=== PATIENT | male | born 1960 | race Caucasian/White ===

== ENCOUNTER → 2017-09-01 09:16 | Outpatient (CLI) | payer MEDICAID ==
[2016-01-17 08:22] VITALS: BMI 31.4
[~2017-09-01 09:16] MED LIST: FENOFIBRATE160 MG PO; FISH OIL 1,0001 CA1 PO
--- NOTE | 2017-09-07 09:53 | EC ---
PATIENT:ERICA KIMBLE DATE OF SERVICE: 09/01/17 SEX: M MEDICAL RECORD: [id number] DATE OF : 64 LOCATION:[facility] AGE OF PATIENT: 57 ADMISSION DATE: 09/01/17 REFERRING PHYSICIAN: INTERPRETING PHYSICIAN: TEE LAU MD ECHOCARDIOGRAM REPORT ECHO CHARGES 4 ECHO COMPLETE CLINICAL DIAGNOSIS: CHEST PAIN ECHOCARDIOGRAPHIC MEASUREMENTS (adult normal given) AC root (d.<3.7cm) 3.6 cm LV Septum d (<1.2 cm> 1.3 cm Valve Excursion 2.1 cm LV Septum (systole) 1.4 cm Left Atria (s.<4.0cm> 4.1 cm LVPW d(<1.2cm) 1.3 cm RV (d.<2.3cm) 3.6 cm LVPW (sytole) 1.6 cm LV diastole(<5.6CM) 5.9 cm MV E-F(>70mm/sec) cm LV systole 4.5 cm LVOT Diameter 1.9 cm MV exc.(>10mm) 1.3 cm Est.ejection fraction (50-75%) % Pericardial Effusion N DOPPLER: LVIT cm/sec A 83.0 cm/sec E 69.0 cm/sec LA cm/sec RVSP 20 mmHg LVOT 109 cm/sec AOP1/2T m/s Asc. Ao 128 cm/sec RVOT 68 cm/sec RA cm/sec PA 115 cm/sec AV Gradient Peak 6.59 mmHg AV Mean 3.29 mmHg AV Area 2.0 cm MV Gradient Peak 3.11 mmHg MV Mean 1.39 mmHg MV Area cm COMMENTS: Photographic Lithographer: Lorrie SHI Manager Reporting: Sara Lau TAPE# PACS DATE OF SERVICE: 09/01/2017 TRANSTHORACIC ECHOCARDIOGRAM FINDINGS: 1. Left ventricle demonstrates mild left ventricular hypertrophy with inflow characteristics consistent with diastolic dysfunction. 2. The aortic valve is normal. 3. The mitral valve is normal shape, size and function with evidence of very trace thickening of the posterior mitral valve leaflet and base. ECHOCARDIOGRAM REPORT [id number] ERICA KIMBLE 4. The tricuspid valve has trace tricuspid regurgitation, normal right ventricular systolic pressures. 5. The pericardium is normal. 6. The right ventricle has mild dilatation. 7. The right atrium has mild dilatation. IMPRESSION: The patient has evidence of early hypertensive heart disease without significant valvular abnormalities. He does demonstrate mild enlargement of the left atrium. TRANSINT:[id number] Voice Confirmation ID: [id number] DOCUMENT ID: [id number] TEE LAU MD at 0953 CC: [id number] DICTATION DATE: 09/04/17 1257 CHAIR SPRING ASSEMBLER: 09/04/17 1451 [facility] CLI 09/01/17 [place] [id number] [place] [address]
== END | disposition home or self-care (01) ==
LOC: D.ECHO 09:16
DX: R07.9 Chest pain, unspecified (principal)

== ENCOUNTER → 2017-09-02 06:21 | Outpatient (CLI) | payer MEDICAID ==
--- NOTE | ~2017-09-02 | HEMODYNAMI ---
PATIENT:ERICA KIMBLE MEDICAL RECORD: [id number] : 64 LOCATION:[facility] ADMISSION DATE: 09/02/17 Generatedon:09/02/201711:11 Patient name: ERICA KIMBLE Patient #: [id number] SSN: : 1960 Date of study: 09/02/2017 Page: Of Hemodynamic Procedure Report Patient Data Patient Demographics Procedure consent was obtained First Name: ERICA Gender: Male Last Name: SHYANNE : 1960 Middle Initial: SOILA Age: 57 year(s) Patient #: [id number] Race: Unknown Additional ID: [id number] Contact details [address]: [address] [place] [address] State: [place] City: [place] Zip code: [address] Past Medical History Allergies: No known allergies Admission Admission Data Admission Date: 09/02/2017 Admission Time: 6:21 Admit Source: Other Lab Results Lab Result Date: 09/02/2017 Lab Result Time: 8:00 Biochemistry Name Units Result Min Max BUN mg/dl 16 --(---*)-- 7 18 Creatinine mg/dl 1.2 --(---*)-- 0.6 1.3 CBC Name Units Result Min Max Hematocrit % 43.3 --(*---)-- 42 54 Hemoglobin g/dl 15 --(-*--)-- 13.5 17.5 Procedure Procedure Types Cath Procedure Diagnostic Procedure LHC LHC w/Coronaries Miscellaneous Procedures Moderate Sedation up to 30 minutes Procedure Description Procedure Date Procedure Date: 09/02/2017 Procedure Start Time: 10:44 Procedure End Time: 11:08 Procedure Staff Name Function Mayco Perry MD Performing Physician Sherri Guadalupe RN Nurse Brad Meraz RT Monitor Miguelina Cardenas RT Scrub Procedure Data Cath Procedure Fluoroscopy Diagnostic fluoroscopy Total fluoroscopy Time: 1.8 time: 1.8 min min Diagnostic fluoroscopy Total fluoroscopy dose: dose: 176.96 mGy 176.96 mGy Contrast Material Contrast Material Type Amount (ml) Isovue 300 41 Entry Location Entry Primary Successful Side Size Upsize Upsize Entry Closure Succes sful Closure Location (Fr) 1 (Fr) 2 (Fr) Remarks Device Remarks Femoral Right 5 Fr Exoseal artery Estimated blood loss: 10 ml Diagnostic catheters Device Type Used For End Catheter Placement Cordis 5Fr JL 4.0 Procedure Catheter (MP) Cordis 5Fr 3DRC Catheter Procedure (MP) Cordis 5Fr Pigtail Procedure Catheter (MP) Procedure Complications No complications Procedure Medications Medication Administration Route Dosage Oxygen NC 2 l/min Lidocaine 2% added to field 20 Heparin Flush Bag added to field 2 bags (1000units/500ml NS) 0.9% NaCl I.V. 100 ml/hr Versed I.V. 2 mg Fentanyl I.V. 25 mcg Radial Cocktail added to field 1 syringe (Verapomil 2mg/Nitro 400mcg/Heparin 1500units) Hemodynamics Rest Heart Rate: 56 (bpm) Pressure Samples Time Site Value (mmHg) Purpose Heart Use Rate(bpm) 11:04 LV 108/-7,13 EDP 58 11:04 AO 113/53(78) Pullback 58 11:04 LV 98/17,30 Pullback 58 Gradients Valve Time Site 1 Site 2 Mean SEP/DFP Peak To Heart Use (mmHg) (sec/min) Peak Rate (mmHg) (bpm) Aortic 11:04 LV AO 0 9 0 58 98/17,30 113/53(78) Calculations Valve P-P Mean Valve Index Valve Source Name Gradient Area Flow (cm2) Aortic 0 0 0 0 Snapshots Pre Cath Intra NCS Post Cath Vital Signs Time Heart Resp SPO2 NIBP (mmHg) Rhythm Pain Sedation Rate (ipm) (%) Status Level (bpm) 10:41:55 57 13 99 110/71(88) NSR 0 (11) 10(A) , No pain 10:46:15 54 16 97 111/65(82) NSR 0 (11) 10(A) , No pain 10:50:42 54 15 96 107/60(89) NSR 0 (11) 10(A) , No pain 10:55:00 52 16 97 110/65(101) NSR 0 (11) 10(A) , No pain 10:59:18 59 13 98 102/68(89) NSR 0 (11) 10(A) , No pain 11:03:34 56 16 97 112/65(85) NSR 0 (11) 10(A) , No pain 11:07:56 57 16 99 114/61(86) NSR 0 (11) 10(A) , No pain Medications Time Medication Route Dose Verified Delivered Reason Notes Effectiveness by by 10:40:57 Oxygen NC 2 l/min Mayco Buffie used for Vicky Guadalupe RN procedure 10:41:05 Lidocaine 2% added 20ml Mayco Mayco for local to vial Vicky Perry MD anesthetic field LAM 10:41:13 Heparin Flush added 2 bags Mayco Buffie used for Bag to Vicky Guadalupe nuclear worker technician (1000units/500ml field LAM NS) 10:41:22 0.9% NaCl I.V. 100 Mayco Buffie Per ml/hr Vicky Guadalupe RN physician 10:44:47 Versed I.V. 2 mg Mayco Buffie for Vicky Guadalupe RN sedation 10:44:53 Fentanyl I.V. 25 mcg Mayco Buffie for Vicky Guadalupe RN sedation 10:50:49 Radial Cocktail added 1 Mayco Mayco not (Verapomil to syringe Vicky Perry MD used. 2mg/Nitro field LAM femoral 400mcg/Heparin access 1500units) obtained Procedure Log Time Note 10:10:10 Sherri Guadalupe RN sent for patient. Start room use. 10:10:36 Informed consent obtained and on chart 10:10:39 Admit Source: Other 10:16:06 Diagnostic Cath status Elective 10:16:22 Time tracking: Regular hours 10:16:25 Plan of Care:Hemodynamics will remain stable., Cardiac rhythm will remain stable., Comfort level will be maintained., Respiratory function will remain adequate., Patient/ family verbilizes understanding of procedure., Procedure tolerated without complication., Recovers from procedure without complications.. 10:16:47 H&P Date Dictated: 09/01/2017 Within 30 days and on chart., H&P Addendum completed by physician on day of procedure. (MUST COMPLETE FOR ALL OUTPATIENTS). 10:27:35 Patient received from Pre/Post Procedure Room to [facility] 3 Alert and oriented. Tansferred to table in Supine position. 10:27:36 Warm blankets applied, and zen hugger turned on for patient comfort. 10:27:37 Correct patient and procedure confirmed by team. 10:27:40 ECG and BP/O2 sat monitors applied to patient. 10::41 Pre-procedure instructions explained to patient. 10::41 Pre-op teaching completed and patient verbalized understanding. 10:27:43 Family in waiting room. 10:27:45 Patient NPO since Midnight. 10:27:52 Patient allergic to No known allergies 10:28:03 Is the patient allergic to Iodine/contrast media? No. 10:40:41 Vital chart was started 10:40:57 Oxygen 2 l/min NC was administered by Sherri Guadalupe RN; used for procedure; 10:41:05 Lidocaine 2% 20ml vial added to field was administered by Mayco Perry MD; for local anesthetic; 10:41:05 Is patient on blood thinner?Yes 10:41:08 ACC The patient was administered the following blood thiners within the last 24 hours: ACCPlavix 10:41:10 Patient diabetic? No. 10:41:13 Heparin Flush Bag (1000units/500ml NS) 2 bags added to field was administered by Sherri Guadalupe RN; used for procedure; 10:41:13 Previous problem with sedation/anesthesia? No ? 10:41:15 Snore? Yes 10:41:16 Sleep apnea? No 10:41:16 Deviated septum? No 10:41:17 Opens mouth fully? Yes 10:41:17 Sticks out tongue? Yes 10:41:19 Airway obstruction? No ? 10:41:21 Dentures? No ? 10:41:22 0.9% NaCl 100 ml/hr I.V. was administered by Sherri Guadalupe RN; Per physician; 10:41:25 Modified Mack's test Radial < 7 seconds 10:41:26 Patient pain scale 0/10 ?. 10:41:40 IV patent on arrival in left hand with 0.9% NaCl at [facility]. 10:42:13 Lab Result : BUN 16 mg/dl 10:42:13 Lab Result : Creatinine 1.2 mg/dl 10:42:13 Lab Result : Hemoglobin 15 g/dl 10:42:13 Lab Result : Hematocrit 43.3 % 10:42:15 Lab results completed and on chart. 10:42:18 Right Radial & Right Groin area was prepped with chlora-prep and draped in sterile fashion 10:42:19 Alarms reviewed by R. N. 10:42:19 Sharps counted by scrub and verified by R.N. 10:42:21 Use device set Radial Dx 10:42:23 Acist Manifold opened to sterile field. 10:42:24 Tegaderm 4 x 4 opened to sterile field. 10:42:25 Acist Hand Control opened to sterile field. 10:42:26 Acist Syringe opened to sterile field. 10:42:26 Medline Cath Pack opened to sterile field. 10:42:27 Bag Decanter opened to sterile field. 10:42:27 Terumo 6Fr Slender Glidesheath opened to sterile field. 10:42:28 St Henri 260cm J .035 wire opened to sterile field. 10:42:37 Physician arrived 10:42:37 --------ALL STOP TIME OUT------ 10:42:37 Final Timeout: patient, procedure, and site verified with staff and physician. All members of the team are in agreement. 10:42:39 Right Radial & Right Groin site verified by team. 10:42:42 Physical assessment completed. ASA score P 2 - A patient with mild systemic disease as per Mayco Perry MD. 10:42:47 Sedation plan: IV Moderate Sedation Versed, Fentanyl 10:44:11 Procedure started. 10:44:11 Full Disclosure recording started 10:44:15 Local anesthetic to right radial artery with Lidocaine 2% by Mayco Perry MD.INITIAL ACCESS ONLY 10:44:47 Versed 2 mg I.V. was administered by Sherri Guadalupe RN; for sedation; 10:44:53 Fentanyl 25 mcg I.V. was administered by Sherri Guadalupe RN; for sedation; 10:49:05 Zero performed for pressure channel P1 10:49:20 Baseline sample Acquired. 10:49:22 Rhythm: sinus rhythm 10:50:41 Cook 21G 4cm Radial Needle opened to sterile field. 10:50:49 Radial Cocktail (Verapomil 2mg/Nitro 400mcg/Heparin 1500units) 1 syringe added to field was administered by Mayco Perry MD; ; not used. femoral access obtained 10:52:57 Local anesthetic to right femoral artery with Lidocaine 2% by Mayco Perry MD.ADDITIONAL ACCESS 10:53:07 Cook 4Fr Micropuncture Set ([id number]) opened to sterile field. 10:53:08 Terumo 5Fr [place] Sheath opened to sterile field. 10:53:28 unable to gain radial access. Moving to femoral approach. 10:53:35 Use device set Multipack Set 10:53:36 Diagnostic Infinity 5Fr Multipack catheter opened to sterile field. 10:53:41 Access obtained with 4Fr micropunture. 10:53:52 A 5 Fr sheath was inserted into the Right Femoral artery 10:57:18 A Cordis 5Fr JL 4.0 Catheter (MP) was advanced over the wire and used for Procedure. 10:59:09 LCA angiography performed. 11:01:37 Catheter exchanged over wire. 11:01:42 A Cordis 5Fr 3DRC Catheter (MP) was advanced over the wire and used for Procedure. 11:02:35 RCA angiography performed. 11:02:56 Catheter exchanged over wire. 11:03:02 A Cordis 5Fr Pigtail Catheter (MP) was advanced over the wire and used for Procedure. 11:04:32 LV gram done using JAVED 11:04:35 Injector settings: Ml/sec: 10, Volume: 20, 11:04:37 LV hemodynamics recorded. 11:05:06 EF : 55 % 11:05:08 Catheter removed. 11:05:14 Cordis 5Fr Exoseal opened to sterile field. 11:05:20 Sheath removed intact; hemostasis achieved with Exoseal to the Right Femoral artery. 11:05:22 Procedure ended.(Physican Out) 11:05:31 Fluoroscopy time 01.80 minutes. 11:05:37 Fluoroscopy dose: 176.96 mGy 11:05:37 Flurop Dose total: 176.96 11:05:41 Contrast amount:Isovue 300 41ml. 11:05:42 Sharps counted by scrub and verified by R.N. 11:05:44 Insertion/operative site no bleeding no hematoma. 11:05:46 Post-op/insertion site Right Femoral artery dressed using a 4 x 4 and Tegaderm. 11:05:49 Post right femoral artery:stable, soft, clean and dry 11:07:56 Post Procedure Pulses reassessed and unchanged 11:08:00 Post-procedure physical assessment completed. ASA score P 2 - A patient with mild systemic disease as per Mayco Perry MD. 11:08:02 Post procedure rhythm: unchanged. 11:08:04 Estimated blood loss: 10 ml 11:08:06 Post procedure instruction explained to patient.Patient verbalizes understanding. 11:08:07 Patient needs reinforcement of post procedure teaching. 11:08:17 Procedure type changed to Cath procedure, Diagnostic procedure, LHC, LHC w/Coronaries, Miscellaneous Procedures, Moderate Sedation up to 30 minutes 11:08:34 Procedure and supply charges have been captured, reviewed, submitted and are correct. 11:08:36 Procedure Complication : No complications 11:08:38 Vital chart was stopped 11:08:38 See physician's report for complete and final results. 11:08:39 Report given to Pre/Post Procedure Room. 11:08:42 Patient transfered to Pre/Post Procedure Room with Stretcher. 11:08:43 Procedure ended. 11:08:43 Full Disclosure recording stopped 11:10:13 End room use (Document Last) Device Usage Item Name Manufacture Quantity Catalog Hospital Part Current Minima l Lot# / Number Charge Number Stock Stock Serial# Code Acist Acist 1 02878 287289 421264 470847 5 Manifold [employer] Inc Tegaderm 4 x 3M 1 1626W 941249 323133 008351 5 4 Acist Hand Acist 1 88258 504281 434310 116017 5 Control Medical [employer] Inc Acist Syringe Acist 1 18119 314017 398837 542305 20 Medical Systems Inc Medline Cath Cardinal 1 [id number] 849469 65379 997753 5 Pack Health Bag Decanter Microtek 1 2001S 431587 14159 170427 5 Medical Inc. Terumo 6Fr Terumo 1 [id number] 166036 080720 136199 [address] Henri [address] St Henri 1 886419 650346 811714 592730 30 J .035 wire Cook 21G 4cm [employer] Medical 1 [id number] 372720 247618 908973 5 Radial Needle Cook 4Fr Cook Medical 1 [id number] 790229 599043 570034 5 Micropuncture Set ([id number]) Terumo 5Fr Terumo 1 [id number] 428851 962372 853166 40 [place] Sheath Diagnostic Cardinal 1 [id number] 017326 36326 289849 30 Infinity 5Fr Health Multipack catheter Cordis 5Fr JL Cardinal 1 [id number] 5 4.0 Catheter Health (MP) Cordis 5Fr Cardinal 1 023468 5 3DRC Catheter Health (MP) Cordis 5Fr Cardinal 1 904824 5 Pigtail Health Catheter (MP) Cordis 5Fr Cardinal 1 EX500 672253 403584 249116 10 [facility] Signature Audit [place] Stage Time Signature Unsigned Intra-Procedure 09/02/2017 Brad Meraz 11:11:55 AM RT(R) Signatures Monitor : Brad Meraz RT Signature : Date : Time : [address] [address]
[2017-09-02 07:50] VITALS: BP 124/75; BMI 33.9
[2017-09-02 08:04] LABS: BASOPHILS 0.4 % (0-2); EOSINOPHILS 4.4 % (0-7); HEMATOCRIT 43.3 % (42.0-54.0); IMMATURE GRANULOCYTES 0.2 % (0-5); LYMPHOCYTES 29.4 % (15-50); MCH 31.1 pg (26.0-34.0); MCHC 34.6 g/dL (31.0-37.0); MCV 89.6 fL (80.0-100.0); MEAN PLATELET VOLUME 9.9 fL (7.4-10.4); MONOCYTES 11.1 % (2-11); NEUTROPHILS 54.5 % (40-80); PLATELET COUNT 132 10x3/uL (130-400); RBC 4.83 10x6/uL (4.20-6.10); RDW 12.4 % (11.5-14.5); WBC 4.6 10x3/uL (4.8-10.8)
[2017-09-02 08:21] LABS: ANION GAP 10.7 mmol/L (8-16); CALCIUM 8.5 mg/dL (8.5-10.1); CARBON DIOXIDE 26.2 mmol/L (21.0-32.0); CREATININE - SERUM 1.2 mg/dL (0.6-1.3); POTASSIUM - SERUM 3.9 mmol/L (3.5-5.1)
--- NOTE | 2017-09-02 11:30 | NUR ---
2L NC, NO RESP DISTRESS NOTED. RIGHT GROIN 5F EXOSEAL CDI, NO BLEEDING OR HEMATOMA NOTED. NO C/O PAIN OR NAUSEA. VSS. CALL LIGHT WITHIN REACH.
--- NOTE | 2017-09-02 12:00 | NUR ---
RESTING QUIETLY WITH EYES CLOSED. 2L NC, NO RESP DISTRESS NOTED. RIGHT GROIN 6F EXOSEAL CDI, NO BLEEDING OR HEMATOMA NOTED. NO C/O AT THIS TIME. CALL LIGHT WITHIN REACH.
--- NOTE | 2017-09-02 12:30 | NUR ---
NO DISTRESS NOTED CHEST PAIN DENIED WITH 5 FR EXOSEAL R/GROIN CDI
--- NOTE | 2017-09-02 12:43 | NUR ---
HOB ELEVATED 30 DEGREES, RIGHT GROIN 5F EXOSEAL CDI, NO BLEEDING NOTED. SANDWICH TRAY AND DRINK GIVEN. NO C/O NAUSEA.
--- NOTE | 2017-09-02 13:02 | NUR ---
LEFT WRIST PIV D/C'D WITH CATHETER INTACT, BAND AID TO SITE. UP TO BEDSIDE TO GET DRESSED.
--- NOTE | 2017-09-02 13:09 | NUR ---
DISCHARGE INSTRUCTIONS GIVEN, VERBALIZED UNDERSTANDING. TO RESTROOM TO VOID.
--- NOTE | 2017-09-02 13:15 | NUR ---
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 LEFT FACILITY WITH FRIEND AND ALL PERSONAL BELONGINGS.
== END | disposition home or self-care (01) ==
LOC: D.CATH 06:21
PROVIDERS: Internal Medicine Cardiovascular Disease
DX: I25.10 Atherosclerotic heart disease of native coronary artery without angina pectoris (principal); R94.39 Abnormal result of other cardiovascular function study; I11.0 Hypertensive heart disease with heart failure; I50.9 Heart failure, unspecified; I51.7 Cardiomegaly; Z01.812 Encounter for preprocedural laboratory examination

== ENCOUNTER → 2018-03-09 15:32 | Outpatient (CLI) | payer MEDICAID ==
[2017-09-02 07:50] VITALS: BMI 33.9
== END | disposition home or self-care (01) ==
LOC: D.RAD 15:32
DX: M54.5 Low back pain (principal)

== ENCOUNTER → 2018-03-22 14:16 | Outpatient (CLI) | payer MEDICAID ==
[2017-09-02 07:50] VITALS: BMI 33.9
== END | disposition home or self-care (01) ==
LOC: D.MRI 03-19 14:30
DX: M54.5 Low back pain (principal)

== ENCOUNTER → 2018-10-12 09:11 | Outpatient (CLI) | payer MEDICAID ==
[2017-09-02 07:50] VITALS: BMI 33.9
== END | disposition home or self-care (01) ==
LOC: D.US 09:11
DX: R42 Dizziness and giddiness (principal)

== ENCOUNTER → 2021-01-23 09:34 | Outpatient (CLI) | payer MEDICAID ==
[2017-09-02 07:50] VITALS: BMI 33.9
--- NOTE | ~2021-01-23 | EC ---
PATIENT:ERICA KIMBLE DATE OF SERVICE: 01/23/21 SEX: M MEDICAL RECORD: [id number] DATE OF : 64 [facility] AGE OF PATIENT: 60 ADMISSION DATE: 01/23/21 REFERRING PHYSICIAN: INTERPRETING PHYSICIAN: NEREYDA JAIN MD ECHOCARDIOGRAM REPORT ECHO CHARGES 4 ECHO COMPLETE Date: 01/23/21 CLINICAL DIAGNOSIS: CHEST PAIN/HEART MURMUR ECHOCARDIOGRAPHIC MEASUREMENTS (adult normal given) AC root (d.<3.7cm) 3.4 cm LV Septum d (<1.2 cm> 1.3 cm Valve Excursion 1.7 cm LV Septum (systole) 1.7 cm Left Atria (s.<4.0cm> 4.0 cm LVPW d(<1.2cm) 1.5 cm RV (d.<2.3cm) 3.6 cm LVPW (sytole) 2.1 cm LV diastole(<5.6CM) 5.3 cm MV E-F(>70mm/sec) cm LV systole 3.4 cm LVOT Diameter 2.0 cm MV exc.(>10mm) 1.2 cm Est.ejection fraction (50-75%) % DOPPLER: LVIT cm/sec A 63.0 cm/sec E 80.0 cm/sec LA cm/sec RVSP 24 mmHg LVOT 87 cm/sec AOP1/2T m/s Asc. Ao 118 cm/sec RVOT 62 cm/sec RA cm/sec PA 100 cm/sec AV Gradient Peak 5.53 mmHg AV Mean 2.97 mmHg AV Area 2.3 cm MV Gradient Peak 2.00 mmHg MV Mean 0.81 mmHg MV Area cm COMMENTS: Tailing Hand: 2 CLARENCE SHI Welt Rander: 3 Dr. Jurado TAPE# PACS Pericardial Effusion N DATE OF SERVICE: Adequate 2D, color flow imaging, spectral Doppler, and M-Mode. LVH is present. LV internal dimensions are normal. Wall motion normal. EF greater than or equal to 55%. Aortic valve is tricuspid. No evidence of stenosis by Doppler interrogation. Left atrium is normal at 4.0 cm. Mitral valve shows no prolapse. Trace MR. Right-sided chambers are grossly normal. Trace TR. ECHOCARDIOGRAM REPORT [id number] ERICA KIMBLE TRANSINT:[id number] Voice Confirmation ID: [id number] DOCUMENT ID: [id number] NEREYDA JAIN MD CC: [id number] DICTATION DATE: 01/24/21 1638 TICKET COUNTER: 01/24/212010 DEP CLI 01/23/21 [place] [id number]
== END | disposition home or self-care (01) ==
LOC: D.HCCARDIO 09:34 → D.HCCECHO 10:30
PROVIDERS: ATTEND Internal Medicine Cardiovascular Disease
DX: I20.9 Angina pectoris, unspecified (principal)

== ENCOUNTER 2021-02-07 11:36 | Day surgery (SDC) | payer BC ==
[~2021-02-07] VITALS: Ht 170.2 cm; Wt 95.5 kg
--- NOTE | ~2021-02-07 | HEMODYNAMI ---
PATIENT:ERICA KIMBLE MEDICAL RECORD: [id number] : 64 LOCATION:[facility]ARA ADMISSION DATE: 02/07/21 Generatedon:113:38 Patient name: ERICA KIMBLE Patient #: [id number] SSN: [id number] : 1960 Date of study: 02/07/2021 Page: Of Hemodynamic Procedure Report Patient Data Patient Demographics Procedure consent was obtained First Name: ERICA Gender: Male Last Name: SHYANNE : 1960 Middle Initial: SOILA Age: 60 year(s) Patient #: [id number] Race: SSN: [id number] Additional ID: [id number] Contact details Address: [address] [place] [address] State: [place] City: [place] Zip code: [address] Past Medical History Performed procedures and imaging results Date Procedure Procedure Results Comments 01/23/2021 Stress testing Positive->Intermediate with SPECT MPI risk Allergies: No known allergies Admission Admission Data Admission Date: 02/07/2021 Admission Time: 11:36 Admit Source: Other Lab Results Lab Result Date: 02/07/2021 Lab Result Time: 0:00 Biochemistry Name Units Result Min Max BUN mg/dl 15 --(--*-)-- 7 18 Creatinine mg/dl 0.9 --(-*--)-- 0.6 1.3 eGFR ml/min 90 --(*---)-- 90 120 NONAFRICAN CBC Name Units Result Min Max Hematocrit % 44.3 --(*---)-- 42 54 Hemoglobin g/dl 15.2 --(-*--)-- 13.5 17.5 Procedure Procedure Types Cath Procedure Diagnostic Procedure LHC LH w/Coronaries Sedation Charges Moderate Sedation 10-24 minutes Procedure Description Procedure Date Procedure Date: 02/07/2021 Procedure Start Time: 13:30 Procedure End Time: 13:37 Procedure Staff Name Function Mat Giraldo MD Performing Physician Ethel Pineda RT Monitor Miguelina Cardenas RT Scrub Sherri Guadalupe RN Nurse Indication Chest pain Procedure Data Cath Procedure Fluoroscopy Diagnostic fluoroscopy Total fluoroscopy Time: 1.1 time: 1.1 min min Diagnostic fluoroscopy Total fluoroscopy dose: 403 dose: 403 mGy mGy Contrast Material Contrast Material Type Amount (ml) Isovue 370 63 Entry Location Entry Primary Successful Side Size Upsize Upsize Entry Closure Succes sful Closure Location (Fr) 1 (Fr) 2 (Fr) Remarks Device Remarks Femoral Right 5 Fr Exoseal artery Estimated blood loss: 5 ml Diagnostic catheters Device Type Used For End Catheter Placement MULTIPACK JL 4.0 5Fr Procedure catheter MULTIPACK 3DRC 5Fr Procedure catheter MULTIPACK Pigtail 5 Fr Procedure catheter Procedure Complications No complications Procedure Medications Medication Administration Route Dosage Oxygen etCO2 Nasal cannula 2 l/min Lidocaine 2% added to field 20 Heparin Flush Bag added to field 2 bags (1000units/500ml NS) 0.9% NaCl I.V. 100 ml/hr Versed I.V. 1 mg Fentanyl I.V. 50 mcg Versed I.V. 1 mg Fentanyl I.V. 50 mcg Versed I.V. 1 mg Fentanyl I.V. 25 mcg Versed I.V. 1 mg Hemodynamics Rest HGB: 15.2 (g/dl) Heart Rate: 60 (bpm) Pressure Samples Time Site Value (mmHg) Purpose Heart Use Rate(bpm) 13:34 LV 99/9,6 Snapshot 64 Gradients Valve Time Site Site Mean SEP/DFP Peak To Heart Use 1 2 (mmHg) (sec/min) Peak Rate (mmHg) (bpm) Aortic 13:35 LV AO 63 Snapshots Pre Cath Intra NCS Post Cath Vital Signs Time Heart Resp SPO2 etCO2 NIBP (mmHg) Rhythm Pain Sedation Rate (ipm) (%) (mmHg) Status Level (bpm) 13:19:42 61 15 96 31.5 151/94(112) NSR 0 (11) 10(A) , No pain 13:24:00 57 14 95 36.7 141/97(113) NSR 0 (11) 10(A) , No pain 13:28:59 58 12 98 42.7 Measuring NSR 0 (11) 10(A) , No pain 13:29:07 57 12 97 43.5 143/81(104) NSR 0 (11) 9(A) , No pain 13:33:31 61 13 95 43.5 136/80(108) NSR 0 (11) 9(A) , No pain 13:37:33 64 12 96 44.2 140/89(108) NSR 0 (11) 10(A) , No pain Medications Time Medication Route Dose Verified Delivered Reason Notes Eff ectiveness by by 13:18:33 Oxygen etCO2 2 Mat Buffie used for Nasal l/min [facility] block greaser cannula 13:18:41 Lidocaine 2% added 20ml Mat Mat for local to vial [facility] anesthetic field MD LAM 13:24:06 Versed I.V. 1 mg Mat Buffie for Enzo Guadalupe RN sedation 13:24:17 Fentanyl I.V. 50 Mat Buffie for mcg Enzo Guadalupe RN sedation 13:25:41 Heparin Flush added 2 Mat Mat used for Bag to bags [facility] procedure (1000units/500ml field MD LAM NS) 13:25:49 0.9% NaCl I.V. 100 Mat Buffie Per ml/hr [place] Guadalupe RN physician 13:27:11 Versed I.V. 1 mg Mat Buffie for Enzo Guadalupe RN sedation 13:27:15 Fentanyl I.V. 50 Mat Buffie for mcg Enzo Guadalupe RN sedation 13:31:36 Versed I.V. 1 mg Mat Buffie for Enoz Guadalupe RN sedation 13:31:40 Fentanyl I.V. 25 Mat Buffie for mcg Enzo Guadalupe RN sedation 13:34:25 Versed I.V. 1 mg Mat Buffie for Enzo Guadalupe RN sedation Procedure Log Time Note 12:20:47 Diagnostic Cath Status : Elective 12:21:10 Indication : Chest pain 12:22:43 Admit Source: Other 12:22:46 ACC Patient presents with Stable Angina CCS Anginal Class 2--Slight limitation of ordinary activity. 12:22:49 Procedure Status Elective Heart Cath (OP). 12:22:51 Time tracking: Regular hours (M-F 7:00 - 5:00) 12:22:56 Plan of Care:Hemodynamics will remain stable., Cardiac rhythm will remain stable., Comfort level will be maintained., Respiratory function will remain adequate., Patient/ family verbilizes understanding of procedure., Procedure tolerated without complication., Recovers from procedure without complications.. 12:23:05 H&P Date Dictated: 01/14/2021 Within 30 days and on chart.. 12:23:07 Pre-procedure instructions explained to patient. 12:23:07 Pre-op teaching completed and patient verbalized understanding. 12:23:09 Family in waiting room. 12:23:11 Patient NPO since Midnight. 12:23:17 Patient allergic to No known allergies 12:24:23 Stress Test: yes; abnormal inferior and apical 12:24:39 Alarms reviewed by R. N. 12:24:40 Sharps counted by scrub and verified by R.N. 12:36:59 Lab results completed and on chart. 12:37:25 Lab Result : Hemoglobin 15.2 g/dl 12:37:25 Lab Result : Hematocrit 44.3 % 12:53:17 Lab Result : BUN 15 mg/dl 12:53:17 Lab Result : eGFR NONAFRICAN 90 ml/min 12:53:17 Lab Result : Creatinine 0.9 mg/dl 12:54:49 Risk of Mortality: 0.1 12:54:52 Risk of blood transfusion: 0.2 12:54:54 Risk of ERIBERTO: 0.1 13:03:13 Sherri Guadalupe RN sent for patient. Start room use. 13:08:54 Patient received from Pre/Post Procedure Room to CCL 1 Alert and oriented. Tansferred to table in Supine position. 13:09:30 Signed procedure consent form obtained from patient. 13:09:32 Warm blankets applied, and zen hugger turned on for patient comfort. 13:09:33 Correct patient and procedure confirmed by team. 13:09:33 ECG and BP/O2 sat monitors applied to patient. 13:18:23 Vital chart was started 13:18:33 Oxygen 2 l/min etCO2 Nasal cannula was administered by Sherri Guadalupe RN; used for procedure; Verbal order read back and verified. 13:18:41 Lidocaine 2% 20ml vial added to field was administered by Mat Giraldo MD; for local anesthetic; Verbal order read back and verified. 13:18:55 Full Disclosure recording started 13:19:02 Rhythm: sinus rhythm 13:19:07 Is the patient allergic to Iodine/contrast media? No. 13:19:09 Was the patient premedicated? No 13:19:10 Is patient on blood thinner?No 13:19:12 Patient diabetic? No. 13:19:13 If diabetic: On Metformin? N/A 13:19:19 ----Pre-sedation anethsthesia assessment.---- 13:19:22 Previous problem with sedation/anesthesia? No ? 13:19:24 Snore? Yes 13:19:26 Sleep apnea? No 13:19:27 Deviated septum? No 13:19:28 Opens mouth fully? Yes 13:19:29 Sticks out tongue? Yes 13:19:31 Airway obstruction? No ? 13:19:32 Dentures? No ? 13:19:36 Pre procedure: right dorsailis pedis pulse 1+ Palpable, but thready & weak; easily obliterated 13:19:38 Modified Mack's test Ulnar > 7 seconds. 13:19:41 Patient pain scale 0/10 ?. 13:19:46 IV patent on arrival in left antecubital with 0.9% NaCl at [facility]. 13:19:54 Right groin area was prepped with chlora-prep and draped in sterile fashion 13:19:58 Use device set Femoral Dx 13:19:59 ACIST Syringe (36025) opened to sterile field. 13:20:00 Bag Decanter (2002S) opened to sterile field. 13:20:01 Medline Cath Pack ([id number]) opened to sterile field. 13:20:01 ACIST Hand Control (21662) opened to sterile field. 13:20:02 ACIST Manifold (49861) opened to sterile field. 13:20:02 DIAGNOSTIC Multipack 5Fr catheter set (KG2513) opened to sterile field. 13:20:04 SHEATH 5FR [place] (VBF549) opened to sterile field. 13:20:06 EMERALD Guide Wire (038-671) opened to sterile field. 13:20:07 Tegaderm 4 x 4 (1626W) opened to sterile field. 13:20:17 Baseline sample Acquired. 13:23:15 --------ALL STOP TIME OUT------ 13:23:16 Final Timeout: patient, procedure, and site verified with staff and physician. All members of the team are in agreement. 13:23:18 Right groin site verified by team. 13:23:27 Fire Safety Assessment: A--An alcohol-based skin anteseptic being used preoperatively., C--Open oxygen or nitrous oxide is being used., D--An ESU, laser, or fiber-optic light is being used. 13:23:31 Physical assessment completed. ASA score P 2 - A patient with mild systemic disease as per Mat Giraldo MD. 13:23:34 1) 90+ Normal kidney functon but urine findings or structural abnormalities or genetic trait point to kidney disease. 13:23:38 Maximum allowable contrast dose (3.7 X eGFR X 0.75)250 ml. 13:23:42 Sedation plan: IV Moderate Sedation Medication:Versed, Fentanyl 13:24:06 Versed 1 mg I.V. was administered by Sherri Guadalupe RN; for sedation; Verbal order read back and verified. 13:24:17 Fentanyl 50 mcg I.V. was administered by Sherri Guadalupe RN; for sedation; Verbal order read back and verified. 13:25:41 Heparin Flush Bag (1000units/500ml NS) 2 bags added to field was administered by Mat Giraldo MD; used for procedure; Verbal order read back and verified. 13:25:49 0.9% NaCl 100 ml/hr I.V. was administered by Sherri Guadalupe RN; Per physician; Verbal order read back and verified. 13:25:59 Zero performed for pressure channel P1 13:27:11 Versed 1 mg I.V. was administered by Sherri Guadalupe RN; for sedation; Verbal order read back and verified. 13:27:15 Fentanyl 50 mcg I.V. was administered by Sherri Guadalupe RN; for sedation; Verbal order read back and verified. 13:27:28 Zero performed for pressure channel P1 13:30:02 Procedure started. 13:30:06 Local anesthetic to right femoral artery with Lidocaine 2% by Mat Giraldo MD.INITIAL ACCESS ONLY 13:30:41 A 5 Fr sheath was inserted into the Right Femoral artery 13:31:11 A MULTIPACK JL 4.0 5Fr catheter was advanced over the wire and used for Procedure. 13:31:36 Versed 1 mg I.V. was administered by Sherri Guadalupe RN; for sedation; Verbal order read back and verified. 13:31:39 LCA angiography performed. 13:31:40 Fentanyl 25 mcg I.V. was administered by Sherri Guadalupe RN; for sedation; Verbal order read back and verified. 13:31:42 Injector settings: Ml/sec: 3, Volume: 6, 13:32:43 Catheter removed. 13:32:50 A MULTIPACK 3DRC 5Fr catheter was advanced over the wire and used for Procedure. 13:33:28 RCA angiography performed. 13:33:31 Injector settings: Ml/sec: 3, Volume: 6, 13:33:46 ACCDominant side:Left 13:33:48 Catheter removed. 13:33:54 A MULTIPACK Pigtail 5 Fr catheter was advanced over the wire and used for Procedure. 13:34:25 Versed 1 mg I.V. was administered by Sherri Guadalupe RN; for sedation; Verbal order read back and verified. 13:34:41 LV gram done using JAVED 13:34:57 LV hemodynamics recorded. 13:35:07 EF : 50 % 13:35:24 Catheter removed. 13:35:26 EXOSEAL 5Fr (EX500) opened to sterile field. 13:35:36 Sheath removed intact; hemostasis achieved with Exoseal to the Right Femoral artery. 13:35:41 Fluoroscopy time 01.10 minutes. 13:35:45 Fluoroscopy dose: 403 mGy 13:35:45 Flurop Dose total: 403 13:35:50 Dose Area Product 10217 mGy/cm. 13:35:54 Contrast amount:Isovue 370 63ml. 13:35:55 Procedure ended.(Physican Out) 13:36:27 Post-op/insertion site Right Femoral artery dressed using a 4 x 4 and Tegaderm. 13:36:32 Post right femoral artery:stable, soft, clean and dry 13:36:33 Post Procedure Pulses reassessed and unchanged 13:36:35 Post procedure: right dorsailis pedis pulse 1+ Palpable, but thready & weak; easily obliterated. 13:36:39 Post-procedure physical assessment completed. ASA score P 2 - A patient with mild systemic disease as per Mat Giraldo MD. 13:36:41 Post procedure rhythm: unchanged. 13:36:44 Estimated blood loss: 5 ml 13:36:45 Post procedure instruction explained to patient.Patient verbalizes understanding. 13:36:46 Patient needs reinforcement of post procedure teaching. 13:36:49 Procedure type changed to Cath procedure, Diagnostic procedure, LHC, [facility] w/Coronaries, Sedation Charges, Moderate Sedation 10-24 minutes 13:37:02 Procedure and supply charges have been captured, reviewed, submitted and are correct. 13:37:05 Procedure Complication : No complications 13:37:12 Vital chart was stopped 13:37:13 [facility] Findings: mild to moderate CAD (<70%) 13:37:17 Operative report dictated upon procedure completion. 13:37:18 See physician's report for complete and final results. 13:37:20 Report given to Pre/Post Procedure Room. 13:37:23 Patient transfered to Pre/Post Procedure Room with Stretcher. 13:37:28 Procedure ended. 13:37:28 Full Disclosure recording stopped 13:37:35 End room use (Document Last) 13:37:47 End room use (Document Last) 13:38:02 End room use (Document Last) Device Usage Item Name Manufacture Quantity Catalog Hospital Part Current Minimal L ot# / Number Charge Number Stock Stock Serial# Code ACIST Acist 1 66018 795418 [id number] 299979 20 Syringe Medical (32223) Systems Inc Bag Microtek 1 2001S 873987 41334 313176 5 Decanter Medical Inc. () Medline Medline 1 [id number] 636533 19886 021280 5 Cath Pack ([id number]) ACIST Hand Acist 1 21975 051892 547283 905229 5 Control Medical (85521) Systems Inc ACIST Acist 1 26007 235991 596646 506311 5 Manifold Medical (64313) Systems Inc DIAGNOSTIC Cardinal 1 ME1881 637376 99628 680033 30 Multipack Health 5Fr catheter set (YE3281) SHEATH 5FR Terumo 1 SGQ343 628182 809567 575649 5 [place] (VHT668) EMERALD Cardinal 1 502-455 764500 511298 016071 5 Guide Wire Health (502-455) Tegaderm 4 3M 1 1626W 424424 118374 476639 5 x 4 (1626W) MULTIPACK Cardinal 1 977255 5 JL 4.0 5Fr Health catheter MULTIPACK Cardinal 1 169235 5 3DRC 5Fr Health catheter MULTIPACK Cardinal 1 656268 5 Pigtail 5 Health Fr catheter EXOSEAL 5Fr Cardinal 1 EX500 375761 773406 365029 10 (EX500) Health Signature Audit [place] Stage Time Signature Unsigned Intra-Procedure 02/07/2021 Ethel Pineda 1:37:47 PM RT(R) Intra-Procedure 02/07/2021 Sherri Guadalupe RN 1:38:02 PM Intra-Procedure 02/07/2021 Mat James 1:38:14 PM Steve L[facility] [id number] [place] [address]
[2021-02-07] MEDS ORDERED: OMEPRAZOLE20 M1 PO (12:04)
[2021-02-07] MEDS ORDERED: LIPITOR20 MG PO (12:04)
[2021-02-07 12:25] VITALS: BP 143/81; Ht 170.2 cm; Wt 95.5 kg
[2021-02-07 12:31] LABS: BASOPHILS 0.6 % (0-2); EOSINOPHILS 2.3 % (0-7); HEMATOCRIT 44.3 % (42.0-54.0); HEMOGLOBIN 15.2 g/dL (13.5-17.5); IMMATURE GRANULOCYTES 0.2 % (0-5); LYMPHOCYTE ABS# 1.19 10x3/uL (1.32-3.57); LYMPHOCYTES 24.7 % (15-50); MCHC 34.3 g/dL (31.0-37.0); MCV 87.5 fL (80.0-100.0); MEAN PLATELET VOLUME 9.7 fL (7.4-10.4); MONOCYTES 8.5 % (2-11); NEUTROPHIL ABS# 3.06 10x3/uL (1.78-5.38); NEUTROPHILS 63.7 % (40-80); PLATELET COUNT 128 10x3/uL (130-400); RBC 5.06 10x6/uL (4.20-6.10); RDW 12.5 % (11.5-14.5); WBC 4.8 10x3/uL (4.8-10.8)
[2021-02-07 12:48] LABS: ALT (SGPT) 41 U/L (10-68); CALC OSMOLALITY 278 mosm/kg (275-300); CALCIUM 8.5 mg/dL (8.5-10.1); CARBON DIOXIDE 25.4 mmol/L (21.0-32.0); CHLORIDE - SERUM 106 mmol/L (98-107); CHOL - HDL RATIO 3.7 ratio (2.3-4.9); CHOLESTEROL, TOTAL 121 mg/dL (0-200); CREATININE - SERUM 0.9 mg/dL (0.6-1.3); GLUCOSE 104 mg/dL (74-106); HDL CHOLESTEROL 33 mg/dL (32-96); LDL CHOLESTEROL 39 mg/dL (0-100); LDL-HDL RATIO 1.2 ratio (1.5-3.5); POTASSIUM - SERUM 4.4 mmol/L (3.5-5.1); SODIUM 139 mmol/L (136-145); TRIGLYCERIDE 249 mg/dL (30-200); UREA NITROGEN 15 mg/dL (7-18); eGFR NON AFRICAN AMERICAN > 90 mL/min (90-120)
--- NOTE | 2021-02-07 13:45 | NUR ---
PT REC'D TO CATH RECOVERY ROOM 4 VIA STRETCHER. MONITORS ESTAB. VSS. 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 ALARMS ON AND C/L IN REACH.
--- NOTE | 2021-02-07 14:00 | NUR ---
R GROIN EXOSEAL SITE SOFT, NO S/S BLEEDING OR HEMATOMA. R LEG/FOOT WARM WITH PALP PULSES AND BRISK CAP REFILL. PT DENIES PAIN OR NEEDS. VSS. ALARMS ON AND C/L IN REACH.
--- NOTE | 2021-02-07 14:30 | NUR ---
R GROIN SITE SOFT, NO S/S BLEEDING OR HEMATOMA, PULSES PALP. VSS. PT SPOKE WITH HIS , NOTIFIED OF PLAN FOR D/C HOME AT 1545. PT DENIES PAIN OR NEEDS. ALARMS ON AND C/L IN REACH.
--- NOTE | 2021-02-07 15:00 | NUR ---
R GROIN SITE C/D/I, NO S/S BLEEDING OR HEMATOMA. PULSES PALP. HOB ELEVATED. JUICE PROVIDED. PT REFUSES SANDWICH AT THIS TIME. VSS. ALARMS ON AND C/L IN REACH.
--- NOTE | 2021-02-07 15:29 | NUR ---
ALL DISCHARGE INSTRUCTIONS REVIEWED WITH PT, INCLUDING RESTRICTIONS, MEDS AND F/U APPT. PT VERBALIZES UNDERSTANDING. R GROIN SITE SOFT, NO S/S BLEEDING. PULSES PALP. VSS.
--- NOTE | 2021-02-07 15:45 | NUR ---
R GROIN SITE SOFT, NO S/S BLEEDING OR HEMATOMA. PULSES PALP. PIV D/C'D INTACT, DSG APPLIED. PT ALLOWED UP TO GET DRESSED AND GO TO BR INDEPENDENTLY.
--- NOTE | 2021-02-07 15:55 | NUR ---
PT WAITING FOR .
--- NOTE | 2021-02-07 16:10 | NUR ---
PT DISCHARGED TO PRIVATE VEHICLE WITH - PT HAS ALL PAPERWORK AND BELONGINGS.
--- NOTE | 2021-02-11 16:00 | OP ---
PATIENT NAME: ERICA KIMBLE MEDICAL RECORD: [id number] :64 LOCATION:D.CAT ADMISSION DATE: SURGEON: NEREYDA JAIN MD DATE OF OPERATION: 02/07/2021 PROCEDURE: Left heart catheterization, selective coronary angiography, right femoral artery approach. CATHETERS: 5-Tunisian sheath, 5/4 left and right Quin, 5/4 pig. The procedure was well tolerated. The patient was returned to the [facility]. Sheath removed. ExoSeal device was placed. FINDINGS: Left ventriculography in 30 degree JAVED view, normal wall motion and normal systolic function. CORONARY ANATOMY: LEFT MAIN: Left main is free of disease. LAD: Free of disease in the diagonal system. CIRCUMFLEX: Free of disease in the marginal system. RIGHT CORONARY ARTERY: Rudimentary, free of disease. IMPRESSION: Normal left ventricular systolic function, normal coronary anatomy. TRANSINT:[id number] Voice Confirmation ID: [id number] DOCUMENT ID: [id number] NEREYDA JAIN MD at 1600 CC: [id number] DICTATION DATE: 02/07/21 1343 VP PUBLIC RELATIONS: 02/07/21 1546 [facility] 02/07/21 [facility] [address] [facility] [address]
== END 2021-02-07 16:10 | disposition home or self-care (01) ==
LOC: D.CATH 11:36
PROVIDERS: ATTEND Internal Medicine Interventional Cardiology
DX: R94.31 Abnormal electrocardiogram [ECG] [EKG] (principal); I20.9 Angina pectoris, unspecified; E78.5 Hyperlipidemia, unspecified; R07.9 Chest pain, unspecified; I10 Essential (primary) hypertension; R01.1 Cardiac murmur, unspecified